=== PATIENT | female | born 1985 | race American Indian/Alaskan Native ===

== ENCOUNTER 2018-05-31 14:11 | Emergency (ER) | payer SELFPAY ==
[2018-05-31 14:18] VITALS: BP 119/78; PULSE 81; RESP 16; TEMP 98.4; O2SAT 99
--- NOTE | 2018-05-31 16:22 | ED PDOC ---
HPI: Skin/Bite Injury Time Seen by Provider: 05/31/18 14:49 Chief Complaint (Nursing): Abnormal Skin Integrity Chief Complaint (Provider): Abnormal Skin Integrity History Per: Patient History/Exam Limitations: no limitations Onset/Duration Of Symptoms: Days (x1) Current Symptoms Are (Timing): Still Present Additional Complaint(s): 32 year old female with pmHx of asthma and recurrent cold sores, presents to ED with a complaint of skin rash to bilateral palms and bottom of toes associated with redness and itchiness for 1 day. She additionally reports a present cold s ore to her left bottom lip with tactile fever and sore throat. Patient states she has not had a rash like this prior to onset and has no concern for STIs. Otherwise, she denies any changes to lotions, detergent, diet, tick bites, known allergies, contact with younger children, headache, visual changes, ear pain, neck pain, back pain, nausea, vomiting, abdominal pain, chest pain, shortness of breath, cough, or dizziness. 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 Vaccinations are UTD. PMD: none provided Past Medical History Reviewed: Historical Data, Nursing Documentation, Vital Signs Vital Signs: Last Vital Signs Temp 98.4 F 05/31/18 14:15 Pulse 81 05/31/18 14:15 Resp 16 05/31/18 14:15 BP 119/78 05/31/18 14:15 Pulse Ox 99 05/31/18 14:15 - Medical History PMH: Asthma - Surgical History Surgical History: No Surg Hx - Family History Family History: States: Unknown Family Hx - Allergies Allergies/Adverse Reactions: Allergies Allergy/AdvReac Type Severity Reaction Status Date / Time apple Allergy SWELLING Verified 05/31/18 14:15 ketorolac Allergy SWELLING Verified 05/31/18 14:15 lobster Allergy SWELLING Uncoded 05/31/18 14:15 Review of Systems ROS Statement: Except As Marked, All Systems Reviewed And Found Negative Constitutional: Positive for: Fever (tactile) Eyes: Negative for: Pain, Vision Change ENT: Positive for: Throat Pain, Other (left lower lip cold sore). Negative for: Ear Pain, Ear Discharge, Nose Pain, Nose Discharge, Nose Congestion, Mouth Pain, Mouth Swelling, Throat Swelling Cardiovascular: Negative for: Chest Pain, Palpitations, Light Headedness Respiratory: Negative for: Cough, Shortness of Breath Gastrointestinal: Negative for: Nausea, Vomiting, Abdominal Pain, Diarrhea Musculoskeletal: Negative for: Neck Pain, Shoulder Pain, Arm Pain, Back Pain, Hand Pain, Leg Pain, Foot Pain Skin: Positive for: Rash (bilateral palms and bottom of toes with itching and redness) Neurological: Negative for: Weakness, Numbness, Altered Mental Status, Headache, Dizziness Physical Exam - Reviewed Nursing Documentation Reviewed: Yes Vital Signs Reviewed: Yes - Physical Exam Appears: Positive for: Non-toxic, No Acute Distress Head Exam: Positive for: ATRAUMATIC, NORMAL INSPECTION, NORMOCEPHALIC Skin: Positive for: Normal Color (plantar aspect of bilateral feet and toes (-) lesions), Rash (non-tender, blanchable, small, flat, discrete erythematous areas with irregular borders scattered across bilateral palms) Eye Exam: Positive for: EOMI, Normal appearance, PERRL ENT: Positive for: TM Is/Are (non-bulging or erythematous), Pharyngeal Erythema (mild), Tonsillar Exudate (right-sided), Tonsillar Swelling (bilaterally), Other (left lower lip sore; (-) mouth lesions) Neck: Positive for: Normal, Painless ROM, Supple Cardiovascular/Chest: Positive for: Regular Rate, Rhythm. Negative for: Other (rash) Respiratory: Positive for: Normal Breath Sounds. Negative for: Respiratory Distress Gastrointestinal/Abdominal: Negative for: Other (rash) Back: Positive for: Normal Inspection. 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 Negative for: Tenderness (affected plams bilaterally), Deformity, Swelling Lymphatic: Negative for: Adenopathy (cervical) Neurologic/Psych: Positive for: Alert, Oriented. Negative for: Motor/Sensory D eficits - ECG O2 Sat by Pulse Oximetry: 99 (RA) Pulse Ox Interpretation: Normal Medical Decision Making Medical Decision Making: Time: 1516 Initial Plan: * Prednisone 60mg PO * Rapid strep * Throat culture Time: 1513 --Patient evaluated by Dr. Hall at bedside who agrees to plan of care. Time: 1739 --Negative for strep. Upon provider reevaluation, patient is feeling better, medically stable and requires no further treatment in the ED at this time. Patient will be discharged home, advised to increase fluids and follow up with [facility] in 2 days. Counseling was provided and all questions were answered regarding diagnosis. There is agreement to discharge plan. Return if symptoms persist or worsen. Clinical Impression: Viral exanthem Scribe Attestation: Documented by Malou Daniels, acting as a scribe for Amalia Lo PA-C. Provider Scribe Attestation: All medical record entries made by the Scribe were at my direction and personally dictated by me. I have reviewed the chart and agree that the record accurately reflects my personal performance of the history, physical exam, medical decision making, and the department course for this patient. I have also personally directed, reviewed, and agree with the discharge instructions and disposition Disposition - Clinical Impression Clinical Impression: Viral exanthem - Patient ED Disposition Is Patient to be Admitted: No Counseled Patient/Family Regarding: Studies Performed, Diagnosis, Need For Followup - Disposition Referrals: [facility] [Outside] Disposition: Routine/Home Disposition Time: 17:40 Condition: IMPROVED Additional Instructions: No strenuous activity, rest Increase fluids, food as tolerated Followup with clinic within 2 days Return to ED for new or worsening symptoms Instructions: Viral Exanthem Forms: [employer] ([place]), [facility] ED School/Work Excuse
== END 2018-05-31 18:35 | disposition home or self-care (01) ==
LOC: H.ER 14:11
DX: B09 Unspecified viral infection characterized by skin and mucous membrane lesions (principal)